=== PATIENT | female | born 1970 | race Caucasian/White ===

== ENCOUNTER 2019-09-10 09:06 | Outpatient (CLI) | payer OTHER, SELFPAY ==
--- NOTE | 2019-09-10 09:19 | MM_ITS ---
WS: [id number] Bilateral screening digital mammogram, 09/10/2019 Clinical Data: SCREENING Comparison: 05/17/2011. Findings: The breast parenchymal pattern shows heterogeneous density. No spiculated masses or clustered calcif ications are seen. There are no secondary signs of carcinoma. MM/[id number] Impression: 1. Negative bilateral mammogram unchanged. 2. Recommend annual screening mammograms. BIRADS: 1-Negative FOLLOW UP: 1 Year Follow-up The CAD toolroom checker was used.
== END 2019-09-10 09:07 | disposition home or self-care (01) ==
LOC: RADSHAW 09:12
PROVIDERS: PCP Family Medicine; Visit Provider Family Medicine
DX: Z12.31 Encounter for screening mammogram for malignant neoplasm of breast (principal)
CPT/HCPCS: 77067

== ENCOUNTER 2022-08-22 09:19 | Outpatient (CLI) | payer OTHER, SELFPAY ==
--- NOTE | 2022-08-22 09:37 | MM_ITS ---
WS: [id number] VIEWS: MLO and CC views both breasts. 3D digital tomosynthesis is also included in this exam. Comparison made with prior exam of 05/17/2011 and 09/10/2019.. Findings: A new 6 mm ovoid nodule is noted in the lateral inferior right breast at about mid depth level identi fied on the MLO view only. This may be a small cyst. No architectural distortion or suspicious calcif ication is identified. The left breast is unchanged. Regional ultrasound and straight 90 degree later al view of the right breast would be recommended for further workup.The breasts are heterogeneously d ense which may obscure small masses. MM/[place] [id number] Impression: BI-RADS: 0-Incomplete: Need additional imaging evaluation FOLLOW-UP: See Report This mammogram was also analyzed by the Computer Aided Detection System R2 Imag e Deployment Technician.
== END 2022-08-22 09:20 | disposition home or self-care (01) ==
LOC: RAD 09:24
PROVIDERS: PCP Internal Medicine; Visit Provider Internal Medicine
DX: Z12.31 Encounter for screening mammogram for malignant neoplasm of breast (principal); N63.10 Unspecified lump in the right breast, unspecified quadrant
CPT/HCPCS: 77063; 77067

== ENCOUNTER 2022-09-20 14:20 | Outpatient (CLI) | payer OTHER, SELFPAY ==
--- NOTE | 2022-09-20 14:35 | MM_ITS ---
WS: [id number] RIGHT 3D TOMOSYNTHESIS DIGITAL MAMMOGRAPHY WITH CAD CLINICAL INFORMATION: ABNORMAL MAMMO HISTORY: Additional views COMPARISON: August 22, 2022 TECHNIQUE: 3 views of the right breast were obtained. FINDINGS: The right breast is composed of heterogeneous fibroglandular density tissue, which can limit the dete ction of small underlying mass lesions. Previously described small ovoid nodule inferior RIGHT breast near the 6:00 position appears stable. Ultrasound is pending. ULTRASOUND BREAST RIGHT TECHNIQUE: Ultrasound right breast focused area of concern. CLINICAL INFORMATION: ABNORMAL MAMMO FINDINGS: Ultrasound RIGHT breast at the 5 to 7:00 position. Small slightly complex cyst at the 5:00 position w ith a few internal echoes. This is probably benign and recommend 6 month follow-up to confirm stabili ty. No other suspicious findings. MM/[place] [id number] IMPRESSION: BI-RADS: 3-Probably Benign FOLLOW UP: 6 Month Follow-up Recommend 6 month follow-up RIGHT breast diagnostic mammography and ultrasound to confirm stability of the complex cystic lesion described above
== END 2022-09-20 14:21 | disposition home or self-care (01) ==
PROVIDERS: PCP Internal Medicine; Visit Provider Internal Medicine
DX: R92.8 Other abnormal and inconclusive findings on diagnostic imaging of breast (principal); N60.01 Solitary cyst of right breast
CPT/HCPCS: 76642; 77061; G0279

== ENCOUNTER 2023-11-04 15:48 | Outpatient (CLI) | payer OTHER, SELFPAY ==
--- NOTE | 2023-11-04 15:55 | MR_ITS ---
WS: [id number] MRI BRAIN WITHOUT AND WITH CONTRAST, ATTENTION DIRECTED TO THE PITUITARY GLAND HISTORY: HEADACHE, MIGRAINE COMPARISON: None available. TECHNIQUE: Diffusion-weighted imaging, axial T2 sequence, and postcontrast images in 3 planes are per formed. High-resolution coronal and sagittal imaging performed through the pituitary region with and without intravenous gadolinium. Normal diffusion imaging. No prior infarct. Minimal small vessel disease. Mild bilateral hippocampal atrophy. Otherwise the brain is well-preserved. Ventricles are normal size. There is slight ectopia o f the cerebellar tonsils but no Chiari malformation. Pituitary gland: Normal appearance of the pituitary gland. No focal hypoenhancing nodules are identif ied. No soft tissue mass encasing the carotid arteries. The infundibulum is midline. No displacement of the optic chiasm. Normal enhancement of the brain. No intra-axial or extra-axial masses. No abnormality at the skull ba se. The visualized arteries and veins are negative. Orbits and globes are unremarkable. No paranasal sinus disease. Mastoid air cells are clear. Normal calvarium. MR/MR pituitary wo/w con* [id number] IMPRESSION: 1. Normal appearance of the pituitary gland. No microadenoma or macroadenoma. 2. Mild ectopia of the cerebellar tonsils but no Chiari malformation. 3. Mild bilateral hippocampal atrophy. 4. Minimal small vessel disease.
== END 2023-11-04 15:49 | disposition home or self-care (01) ==
LOC: RAD 15:49
PROVIDERS: PCP Internal Medicine; Visit Provider Internal Medicine
DX: G43.909 Migraine, unspecified, not intractable, without status migrainosus (principal)
CPT/HCPCS: 70553; A9577

== ENCOUNTER 2023-12-19 16:07 | Outpatient (CLI) | payer OTHER, SELFPAY | END 2023-12-19 16:08 | disposition home or self-care (01) | LOC: SLEEP 16:07 | PROVIDERS: PCP Internal Medicine; Visit Provider Internal Medicine | DX: G47.33 Obstructive sleep apnea (adult) (pediatric) (principal) | CPT/HCPCS: G0399 ==